=== PATIENT | female | born 1990 | race African-American/Black ===

== ENCOUNTER 2017-01-06 13:40 | Emergency (ER) | payer OTHER ==
[2017-01-06] MEDS ORDERED: fentaNYL CITRATE/PF 100 MCG/ 2ML AMP ONE (13:45)
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
[2017-01-06] MEDS ORDERED: fentaNYL CITRATE/PF 100 MCG/ 2ML AMP IVP ONE (13:50)
[2017-01-06 14:04] VITALS: BP 121/59
[2017-01-06 14:21] LABS: BASOPHILS % 0.4 (0.0-1.5); LYMPHOCYTES # 3.3 # k/uL (0.6-4.0); MEAN CORPUSCULAR HEMOGLOBIN 27.2 pg (28.0-34.0); MONOCYTES # 0.5 # k/uL (0.0-0.9); MONOCYTES % 2.9 % (0.0-11.0); NEUTROPHILS # 12.2 # k/uL (1.4-7.7)
[2017-01-06 14:45] LABS: eGFR (African) > 60; eGFR (Non-African) > 60
== END 2017-01-06 14:25 | disposition short-term general hospital (02) ==
LOC: ED 13:40
DX: S09.93XA Unspecified injury of face, initial encounter (principal); V48.5XXA Car driver injured in noncollision transport accident in traffic accident, initial encounter; Y93.9 Activity, unspecified; Y99.9 Unspecified external cause status
CPT/HCPCS: 36415; 80053; 84484; 85025; J3010; 96374; 99284; S1016